=== PATIENT | male | born 1950 | race Caucasian/White ===

== ENCOUNTER 2020-07-26 09:32 | Day surgery (SDC) | payer MEDICARE, BC ==
[~2020-07-26 09:32] MED LIST: Lactated Ringers 1,000 ML IV ONE; Lactated Ringers 1,000 ML IV SCH
[2020-07-26 10:11] VITALS: O2SAT 98
[2020-07-26] MEDS ORDERED: Versed 2 MG/2 ML Injection ONE (10:58)
[2020-07-26] MEDS ORDERED: DIPRIVAN 200 MG/20 ML IV ONE ×2 (10:59→11:22)
--- NOTE | 2020-07-26 11:23 | HP ---
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 He also has had prior polyps and his last colonoscopy was approximately 2016. He presents for surveillance as well. No cough. No fever. No shortness of breath. No abdominal pain. No bleeding. Currently asymptomatic. COVID test was negative. Labs have been reviewed personally with the patient. MEDICATIONS: His medications and allergies are all reviewed and are listed in the chart and these are confirmed. PAST MEDICAL/SURGICAL HISTORY: As listed and reviewed in the chart and confirmed. PHYSICAL EXAMINATION: GENERAL: No acute distress. CVS: Regular rate and rhythm. LUNGS: Nonlabored. ABDOMEN: Soft, nontender, nondistended. EXTREMITIES: Normal. DIAGNOSIS: History of colon polyps and history of Moss's disease. PLAN: EGD with biopsy and colonoscopy.
[2020-07-26] MEDS ORDERED: GlucaGen 1 MG ONE (11:33)
[2020-07-26] MEDS ORDERED: Lactated Ringers 1,000 ML IV ONE (11:55)
[2020-07-26 13:21] VITALS: BP 137/79; PULSE 59
--- NOTE | 2020-07-30 12:06 | OP ---
PROCEDURE DATE/TIME: 07/26/2020 1102 PREOPERATIVE DIAGNOSES: 1) Moss's esophagus. 2) Hiatal hernia. 3) Screening for colonoscopy. POSTOPERATIVE DIAGNOSES: 1) Mild gastritis. 2) Mild duodenitis. 3) Gastric polyps. 4) Small hiatal hernia. 5) Moss's disease. 6) Diverticulosis. PROCEDURES: 1) EGD with hot snare gastric polypectomies and biopsies. 2) Colonoscopy to cecum. PROCEDURE PERFORMED BY: Dulce Shine M.D. ANESTHESIA: MAC. ESTIMATED BLOOD LOSS: Minimal. COMPLICATIONS: None. SPECIMENS: 1) Gastric polyps. 2) Antral biopsy distal esophagus and esophagus at 37 cm biopsy. HISTORY: This is a patient who presents for Moss's as well as surveillance colonoscopy. He also has a known hiatalhernia. Risks, benefits, alternatives, H&P and consent reviewed with him and confirmed. DESCRIPTION OF PROCEDURE: He was then brought back to the endoscopy suite, laid in the left lateral decubitus position. A complete time out performed. The scope gently introduced in the mouth, oropharynx, down to the esophagus, stomach and duodenum. He has a known small hiatal hernia. He also has significant gastric polyps. There were approximately five polyps that were large in size. I did remove these with hot snare. These were retrieved and sent to pathology. They do appear to be benign. He had numerous other very small polyps all consistent with proton pump inhibitor use. I do not see any masses or concerning lesions at this time. I did take an antral biopsy to rule out Helicobacter pylori. He did have some mild gastritis most significant in the antrum. He did have some mild duodenitis as well in D1. No sign of any mass. After insuring hemostasis and after retroflexing and revisualizing the small hiatal hernia and insuring there was no other concerning findings, we then carefully withdrew the scope to the distal esophagus. The gastroesophageal junction is at about 38.5 cm. He has about two columns of 1 cm mucosal change consistent with Moss's disease. He also had one island of about 37 cm. We biopsied all four quadrants sent as "Distal esophageal biopsies" and I also did biopsy of the island at 37 cm and we sent this to pathology as well. No sign of any malignancy here. The rest of the esophagus looked normal. All sites were hemostatic. The scope was able to be completely withdrawn. She was then repositioned for colonoscopy. First, I did a rectal exam. He has minimal hemorrhoids. The scope is then inserted and gently advanced to the level of the cecum. The cecum clearly identified by the appendiceal orifice and ileocecal valve. Prep was satisfactory for significant polyps. However, he did have liquid stool that I did have to copiously irrigate throughout the procedure. We carefully withdrew the scope taking a circumferential view. I noted diverticulosis but outside of this he did not have any other significant findings. No polyps. Based on his prep, his findings and his history, we will plan to do another colonoscopy in five years and we will plan to do another EGD in approximately two years, sooner if there are any concerning findings on our pathology.
== END 2020-07-26 13:25 | disposition home or self-care (01) ==
LOC: SDC 09:32
PROVIDERS: ATTEND Surgery
DX: Z12.11 Encounter for screening for malignant neoplasm of colon (principal); K22.70 Barrett's esophagus without dysplasia; K44.9 Diaphragmatic hernia without obstruction or gangrene; K29.70 Gastritis, unspecified, without bleeding; K57.30 Diverticulosis of large intestine without perforation or abscess without bleeding; K31.7 Polyp of stomach and duodenum; E11.9 Type 2 diabetes mellitus without complications; Z79.899 Other long term (current) drug therapy; I10 Essential (primary) hypertension
CPT/HCPCS: 43251; 82947; G0121; 88305; J1610; J2250; J2704

== ENCOUNTER 2023-05-31 09:14 | Day surgery (SDC) | payer MEDICARE, BC ==
[2023-05-31] MEDS: Lactated Ringers 1,000 ML IV SCH (09:41)
[2023-05-31 09:49] VITALS: RESP 18
[2023-05-31] MEDS ORDERED: DIPRIVAN 200 MG/20 ML IV ONE (11:50)
[2023-05-31] MEDS ORDERED: Xylocaine-Mpf 2% 5 Ml Vial ONE (11:50)
[2023-05-31 12:28] VITALS: TEMP 97.2
[2023-05-31 12:49] VITALS: BP 181/92; PULSE 50; O2SAT 97
--- NOTE | 2023-05-31 15:03 | OP ---
SURGERY DATE/TIME: 05/31/2023 1151 PREOPERATIVE DIAGNOSIS: History of esophagitis. POSTOPERATIVE DIAGNOSES: History of esophagitis with mildly irregular Z-line. PROCEDURE: EGD with biopsy. SURGEON: Horace Shine M.D. ANESTHESIA: IV. CONDITION: Patient condition stable. COMPLICATIONS: None. SPECIMENS: As below. HISTORY: The patient is 72-year-old male with history of esophagitis that ended up having Toupet fundoplication. He has done very well since that time with resolution of his symptoms. He is presenting for surveillance of the esophagitis. FINDINGS: Mildly irregular Z-line biopsied. DESCRIPTION OF PROCEDURE: The patient was brought to the endoscopy suite and routinely positioned. Time out performed. IV anesthesia induced by anesthesia. The gastroscope was inserted through the mouth and advanced to the third portion of duodenum. The duodenum is normal in appearance. Stomach is normal in appearance. Retroflexion showed evidence of fundoplication. The Z-line is slightly irregular where the Z-line just creased slightly to the esophagus side. Biopsy is taken of the gastroesophageal junction in multiple areas. The esophagus is normal in appearance. Stomach is suctioned out. Scope is withdrawn. RECOMMENDATIONS: I recommend follow up within one month to discuss the pathology results although I think he has a skin lesion that he has scheduled to get removed in the office so we can tell him at that appointment.
== END 2023-05-31 12:55 | disposition home or self-care (01) ==
LOC: SDC 09:14
PROVIDERS: ATTEND Surgery
DX: Z87.19 Personal history of other diseases of the digestive system (principal); K22.9 Disease of esophagus, unspecified; E10.9 Type 1 diabetes mellitus without complications
CPT/HCPCS: 82947; 93005; 99100; J2704